=== PATIENT | female | born 1995 | race Hispanic/Latino ===

== ENCOUNTER 2020-03-16 21:14 | Inpatient (IN) | payer OTHER, SELFPAY ==
[2020-03-16] MEDS ORDERED: cloNIDine 0.1 MG TAB PO PRN (23:09)
[2020-03-16] MEDS ORDERED: Labetalol HCl 100 MG/20 ML VIAL SLOW IVP PRN (23:09)
[2020-03-16] MEDS ORDERED: hydrALAZINE 20 MG/ML VIAL SLOW IVP PRN (23:09)
[2020-03-16] MEDS ORDERED: Promethazine HCl 12.5 MG in Sodium Chloride 0.9% 50 ML IVPB PRN (23:09)
[2020-03-16] MEDS ORDERED: Ondansetron PF 4 MG/2 ML Vial IVP PRN (23:09)
[2020-03-16] MEDS ORDERED: Morphine 2 MG/ML VIAL SLOW IVP PRN (23:09)
--- NOTE | 2020-03-16 23:11 | PDOC.HHP ---
Hospitalist HPI - History of Present Illness Back pain History of Present Illness: Patient is a 24 year old female with PMH CKD who presents to ED for R sided back pain x 2 days. Pain was 10/10 this AM, R sided, accompanied by dysuria and UTI symptoms. She presented to [facility] ED, there WBC 15.6, Cr 2.09, CT A/O concerning for R ureteral/urinary tract inflammatory process. UA positive for UTI, test negative. Vitals tachycardic. Patient transferred for pyelonephritis and sepsis. Given vancomycin/ampicillin/rocephin, urine/blood cultures sent there. Here, vitals improved with IVF, patient to be admitted for pyelonephritis observation. Patient only real medical history is CKD which began after issues a few years ago. She developed a complication which sounds like preeclampsia perhaps and had an emergent C section, after recovering from this she developed CKD for which she saw a physician at [facility] last year for abnormal kidney function, she was told she only had "20%" of her kidney function then. Unsure exactly what her creatinine was at the time. Hospitalist ROS - Review of Systems Constitutional: reports: chills. denies: fever, sweats, weakness, malaise, other Eyes: denies: pain, vision change, conjunctivae inflammation, eyelid inflammation, redness, other ENT: denies: ear pain, ear discharge, nose pain, nose discharge, nose congestion, mouth pain, mouth swelling, throat pain, throat swelling, other Respiratory: denies: cough, dry, shortness of breath, hemoptysis, SOB with excertion, pleuritic pain, sputum, wheezing, other Cardiovascular: denies: chest pain, palpitations, orthopnea, paroxysmal noc. dyspnea, edema, light headedness, other Gastrointestinal: denies: nausea, vomiting, abdominal pain, diarrhea, constipation, melena, hematochezia, other Genitourinary: denies: dysuria, frequency, incontinence, hematuria, retention, other Musculoskeletal: reports: back pain. denies: neck pain, shoulder pain, arm pain, hand pain, leg pain, foot pain, other Skin: denies: rash, lesions, george, bruising, other Neurological: denies: weakness, numbness, incoordination, change in speech, confusion, seizures, other All other systems reviewed; all pertinent +/- noted in HPI/Subj - Medication Medications: reviewed Hospitalist History - Past Medical History Other Medical History: complications, CKD - Past Surgical History Past Surgical History: reports: - Family History Family History: reports: no pertinent history - Social History Alcohol: reports: None Drugs: reports: none - Exam General Appearance: NAD, awake alert Eye: PERRL, anicteric sclera ENT: normocephalic atraumatic, no oropharyngeal lesions, moist mucosa Neck: supple, symmetric, no JVD, no thyromegaly, no lymphadenopathy, no carotid bruit Heart: RRR, no murmur, no gallops, no rubs, normal peripheral pulses Respiratory: CTAB, no wheezes, no rales, no ronchi, normal chest expansion, no tachypnea, normal percussion Gastrointestinal: soft, non-tender, non-distended, normal bowel sounds, no palpable masses, no hepatomegaly, no splenomegaly, no bruit Gastrointestinal - other findings: R CVA tenderness Extremities: no cyanosis, no clubbing, no edema Skin: normal turgor, no lesions, no rashes Neurological: cranial nerve grossly intact, normal sensation to touch, no weakness, no focal deficits, no new deficit Musculoskeletal: normal tone, normal strength, no muscle wasting Psychiatric: normal affect, normal behavior, A&O x 3 Hospitalist Results - Labs Additional comment: labs, imaging report, ED documents from outside ED and here reviewed VITAL SIGNS SatMar 16, 2020 23:46 ERICK Lock, Dotty BP: 107/73 Pulse: 82 Resp: 20 Temp: 99.5 (Oral) Pain: 5 O2 sat: 99 on (Room Air) Time: 03/16/2020 23:46. Hospitalist H&P A/P - Plan Plan: Patient is a 24 year old female with PMH CKD who presents to ED for R sided back pain x 2 days. # R sided pyelonephritis # sepsis secondary to R sided pyelonephritis - admit to floor - continue IVF - rocephin - follow cultures drawn at outside ED - PRN pain medication # CKD - unknown stage, suspect CKD IV based on GFR here Patient only real medical history is CKD which began after issues a few years ago. She developed a complication which sounds like preeclampsia perhaps and had an emergent C section, after recovering from this she developed CKD for which she saw a physician at [facility] last year for abnormal kidney function, she was told she only had "20%" of her kidney function then. Unsure exactly what her creatinine was at the time. - trend BMP, continue IVF, bladder scan - recommend outpatient follow up and management DVT/GI ppx Full code
[2020-03-16] MEDS ORDERED: Electrolyte Replacement Protocol FS SCH (23:15)
[2020-03-16] MEDS: Sodium Chloride 0.9% 1,000 ML IV SCH (23:59)
[2020-03-17 00:34] VITALS: BMI 23.8
[2020-03-17 05:47] LABS: #Lymphocytes 1.5 thou/uL (1.20-3.40); #Monocytes 0.7 thou/uL (0.11-0.59); #Neutrophils 6.7 thou/uL (1.40-6.50); %Basophils 0.2 % (0.0-1.0); %Eosinophils 0.5 % (0.0-10.0); %Monocytes 7.9 % (0.0-10.0); %Neutrophils 74.4 % (42.0-75.0); Hemoglobin 10.7 g/dL (12.0-16.0); Mean Corpuscular HGB CONC 32.9 g/dL (32.0-36.0); Mean Corpuscular Volume 94.1 fL (78.0-98.0); Mean Platelet Volume 11.3 fL (7.4-10.4); Platelet Count 131 thou/uL (130-400); RBC Distribution Width 11.7 % (11.5-14.5); Red Blood Cell (RBC) Count 3.45 mill/uL (4.20-5.40)
[2020-03-17 06:10] LABS: Anion Gap 13 mmol/L (10-20); BUN (Urea Nitrogen) 21 mg/dL (7.0-18.7); Calc. Creatinine Clearance 39 mL/min (70-130); Calcium 7.8 mg/dL (7.8-10.44); Carbon Dioxide 17 mmol/L (22-29); Chloride 115 mmol/L (98-107); Estimated GFR-MDRD 33; Glucose 91 mg/dL (70-105); Magnesium 1.7 mg/dL (1.6-2.6); Potassium 4.2 mmol/L (3.5-5.1); Sodium 141 mmol/L (136-145)
[2020-03-17] MEDS: Sodium Chloride 0.9% 1,000 ML IV SCH ×2 (06:12→18:17)
[2020-03-17] MEDS: Famotidine 20 MG TAB PO SCH (07:41)
[2020-03-17] MEDS: Polyethylene Glycol 3350 17 GM Packet PO SCH (07:42)
[2020-03-17] MEDS: HYDROcodone/Acetaminophen 5/325 mg Tablet PO PRN ×2 (07:46→19:23)
[2020-03-17] MEDS ORDERED: Magnesium 2 GM/50 ML 2 GM in Premix Bag 1 BAG IVPB SCH (09:45)
--- NOTE | 2020-03-17 10:30 | PDOC.HOSPP ---
- Subjective Encounter Date: 03/17/20 Encounter Time: 08:00 Subjective: THe patient is doing well. She has been urinating every 40 minutes, no dysuria. She still has some pain in her flank No nausea or vomiting. Patient's last creatinine was 07/30/2018 and was 2.0. It was 2.2 on 07/16. She reports having protein in her urine during her last and had an emergency C - section at that time. REnal ultrasound at [facility] showed bilateral echogenic kidneys with right renal atrophy Patient states she has not had a creatinine since then because of financial issues. She has no PCP . She just moved here from [place] in [place] She denies history of hypertension as a kid, states she got all her vaccinations - Objective Vital Signs & Weight: Vital Signs (12 hours) Temp Pulse Resp BP BP Pulse Ox 03/17/20 08:01 97.4 F L 51 L 16 122/59 L 97 03/17/20 08:00 97.4 F L 51 L 16 122/59 L 97 03/17/20 07:43 97.4 F L 51 L 16 122/59 L 97 03/17/20 04:00 97.5 F L 69 16 120/66 100 03/16/20 23:59 98.5 F 61 18 108/43 L 97 Weight Weight 118 lb Result Diagrams: 03/17/20 05:28 03/17/20 05:28 Hospitalist ROS - Review of Systems Constitutional: denies: fever, chills - Medication Medications: Active Medications Generic Name Dose Route Start Last Admin Trade Name Freq PRN Reason Stop Dose Admin Hydrocodone Bitart/Acetaminophen 1 tab 03/16/20 23:09 03/17/20 07:46 Hydrocodone/Acetaminophen 5/325 Mg Tablet PO 1 tab Q4H PRN Administration Moderate Pain (4-6) Famotidine 20 mg 03/17/20 09:00 03/17/20 07:41 Famotidine 20 Mg Tab PO 20 mg QAM JENA Administration Sodium Chloride 1,000 mls @ 125 mls/hr 03/16/20 23:15 03/17/20 06:12 Normal Saline 0.9% IV 1,000 mls .Q8H JENA Administration Polyethylene Glycol 17 gm 03/17/20 09:00 03/17/20 07:42 Polyethylene Glycol 3350 17 Gm Packet PO 17 gm DAILY JENA Administration - Exam General Appearance: NAD, awake alert Eye: PERRL, anicteric sclera ENT: normocephalic atraumatic, no oropharyngeal lesions Neck: no JVD Heart: RRR, no murmur, no gallops, no rubs Respiratory: CTAB, no wheezes, no rales, no ronchi Gastrointestinal: soft, non-tender, normal bowel sounds Gastrointestinal - other findings: mild bilateral CVA tenderness Extremities: no cyanosis, no clubbing, no edema Skin: normal turgor, no lesions, no rashes Neurological: cranial nerve grossly intact, normal sensation to touch, no focal deficits, no new deficit Hosp A/P - Plan This is a 24 year old female who presented with fever, tachycardia, admitted for sepsis secondary to pyelonephritis SEpsis secondary to pyelonephritis - f/u blood and urine cultures - continue IV ceftriaxone FAITH on possible CKD - last creatinine 2.0 in 07/2018, unclear patient's baseline - creatinine has improved to 1.8 with fluids, will continue fluids for now Macrocytic anemia - Hb 10, possibly dilutional - recheck in the am
[2020-03-17 12:22] LABS: SARS-CoV-2 MS2 Positive; SARS-CoV-2 N Gene Negative; SARS-CoV-2 S Gene Negative; SARS-CoV-2 by NAA Not Detected (NotDetected); SARS-CoV-2 orf1ab Negative
--- NOTE | 2020-03-17 17:21 | ULT ---
Renal ultrasound: 03/17/2020 COMPARISON: None HISTORY: Chronic kidney disease TECHNIQUE: Multiplanar grayscale sonographic imaging of the kidneys and urinary bladder obtained FINDINGS: The right kidney is echogenic and measures 8.1 x 2.6 x 3.8 cm. Left kidney is echogenic and measures 8.5 x 3.5 x 4.7 cm. Urinary bladder appears grossly unremarkabl e. No renal mass, hydronephrosis, or renal stone noted on either side. IMPRESSION: Increased echogenicity of the kidneys may signify renal medical disease. No hydronephrosi s.
[2020-03-17] MEDS ORDERED: Sodium Bicarbonate 150 MEQ in Dextrose 5% in Water 1,000 ML IV SCH (19:00)
[2020-03-17 20:41] LABS: Creatinine, Urine 31.93 mg/dL (47-110)
[2020-03-17] MEDS: Enoxaparin Sodium 30 MG/0.3 ML SYRINGE SC SCH (20:52)
[2020-03-17] MEDS ORDERED: cefTRIAXone\\ROCEPHIN 1 GM in Sodium Chloride 0.9% 100 ML IVPB SCH (21:00)
--- NOTE | 2020-03-17 22:00 | CON ---
DATE OF CONSULTATION: CONSULTING PHYSICIAN: Joey Redmond MD REQUESTING PHYSICIAN: Dr. Scherer. REASON FOR CONSULTATION: Isxtg-fe-zulprtn kidney disease. IMPRESSION: 1. Okchr-tv-dfyrjkg kidney disease, likely cytokine mediated in the context of infection. 2. Urinary tract infection, recurrent with possible extension to the right kidney level. 3. Metabolic acidosis. 4. History of chronic kidney disease query cause with a possible preeclampsia history. PLAN: 1. Discontinue current normal saline to avoid worsening metabolic acidosis due to re-expansion acidosis. In place of this, we will start this patient on a bicarb based infusion. 2. Renal ultrasound to evaluate the structural integrity of the kidneys as well as any potential anatomical anomaly that predisposes this patient to recurrent urinary tract infection. 3. Renally dose all medications for low GFR. 4. Evaluate the anemia by checking the iron status of this patient. 5. We will treat the vitamin D level. 6. Avoid potentially nephrotoxic agents. We will evaluate the degree of proteinuria in this patient by checking the protein creatinine ratio in the urine. 7. Antibiotics treatment pending urinary culture sensitivity. HISTORY: Is that of 24-year-old female patient with a known history of chronic kidney disease, preeclampsia, necessitating emergent section at [age] months of age, who presented here with right-sided back pain of about 2 days duration and initial evaluation highly suggestive of urinary tract infection. According to the patient for the past 4 years, she has been having some degree of recurrent urinary tract infection. Initial laboratory investigation did confirm UTI and also showed elevated creatinine at 2.09 and evidence of metabolic acidosis. As a result of these findings and the previous history, decision was taken to involve Renal in the management of this case. PAST MEDICAL HISTORY: Essentially involved around preeclampsia. MEDICATIONS: No significant history of medication intake. ALLERGIES: NO KNOWN DRUG ALLERGIES. FAMILY HISTORY: Questionable history of possible kidney disease in the distant cousin. SOCIAL HISTORY: The patient is . She denies alcohol, tobacco, or illicit drug use. REVIEW OF SYSTEMS: As documented in the body of the history. All the other systems were reviewed and found not to be significantly related to present illness. PHYSICAL EXAMINATION: GENERAL: The patient was found not to be in any obvious distress. VITAL SIGNS: Noted with the following vital signs; afebrile, temperature 97.9, pulse 58, respiratory rate of 20, O2 saturation 98% with a blood pressure 102/68. HEENT: Unremarkable. CARDIOVASCULAR SYSTEM: First and second heart sounds were heard. RESPIRATORY SYSTEM: Clear to auscultation. DIGESTIVE SYSTEM: Revealed a benign abdomen. Positive bowel sounds. EXTREMITIES: No peripheral edema. SKIN: No new gross rash. UROGENITAL SYSTEM: Did reveal positive costovertebral angle tenderness on the right. SUMMARY: A 24-year-old very nice female patient who presented here with evidence of urinary tract infection and noted to have worsening wqcwg-na-brdsmak kidney disease. Thank you for this consultation. We will follow with you. Job ID: [id number]
[2020-03-18 06:17] LABS: Hemoglobin 11.6 g/dL (12.0-16.0); Mean Corpuscular HGB CONC 33.1 g/dL (32.0-36.0); Mean Corpuscular Hemoglobin 30.9 pg (27.0-31.0); Mean Corpuscular Volume 93.3 fL (78.0-98.0); Platelet Count 143 thou/uL (130-400); RBC Distribution Width 11.6 % (11.5-14.5); Red Blood Cell (RBC) Count 3.76 mill/uL (4.20-5.40); White Blood Cell (WBC) Count 5.6 thou/uL (4.8-10.8)
[2020-03-18 06:32] LABS: Iron 23 ug/dL (50-170); Iron Binding Capacity, Total 219 mcg/dL (265-497)
[2020-03-18 06:41] LABS: ALT (SGPT) 12 U/L (8-55); AST (SGOT) 19 U/L (5-34); Albumin 3.3 g/dL (3.5-5.0); Alkaline Phosphatase 68 U/L (40-110); Anion Gap 13 mmol/L (10-20); BUN (Urea Nitrogen) 16 mg/dL (7.0-18.7); Bilirubin, Total Less than 0.2 mg/dL (0.2-1.2); Calc. Creatinine Clearance 41 mL/min (70-130); Calcium 8.4 mg/dL (7.8-10.44); Carbon Dioxide 25 mmol/L (22-29); Chloride 109 mmol/L (98-107); Estimated GFR-MDRD 35; Globulin 2.6 g/dL (2.4-3.5); Glucose 99 mg/dL (70-105); Iron 22 ug/dL (50-170); Potassium 3.5 mmol/L (3.5-5.1); Protein, Total 5.9 g/dL (6.0-8.3); Sodium 143 mmol/L (136-145)
[2020-03-18 07:05] LABS: Ferritin 69.86 ng/mL (10-291); Thyroid Stimulating Hormone 0.7894 uIU/mL (0.35-4.94)
[2020-03-18] MEDS ORDERED: Potassium Chloride 20 MEQ TAB PO SCH (08:00)
[2020-03-18] MEDS: Famotidine 20 MG TAB PO SCH (08:15)
[2020-03-18] MEDS: Polyethylene Glycol 3350 17 GM Packet PO SCH (08:15)
[2020-03-18] MEDS: HYDROcodone/Acetaminophen 5/325 mg Tablet PO PRN ×2 (08:18→20:09)
[2020-03-18] MEDS: Cholecalciferol (Vitamin D3) 400 UNITS TAB PO SCH (11:03)
[2020-03-18] MEDS: Acetaminophen 325 MG TAB PO PRN (13:24)
[2020-03-18] MEDS ORDERED: Cefdinir 300 MG CAP PO SCH (14:15)
[2020-03-18] MEDS ORDERED: IRON SUCROSE COMPLEX 100 MG/5 ML SLOW IVP SCH (17:15)
[2020-03-18] MEDS ORDERED: Iron, Sodium Ferric Gluconate 250 MG in Sodium Chloride 0.9% 100 ML IVPB SCH (17:30)
--- NOTE | 2020-03-18 17:58 | PDOC.HOSPP ---
- Subjective Encounter Date: 03/18/20 Encounter Time: 10:00 Subjective: The patient states she still has some mild flank pain and back pain. She also has some diarrhea, states she received a stool softener yesterday. She has no nausea or vomiting. Creatinine improved to 1.8 today . Urine culture shows no growth - Objective Vital Signs & Weight: Vital Signs (12 hours) Temp Pulse Resp BP Pulse Ox 03/18/20 15:42 98.2 F 68 18 123/74 100 03/18/20 11:13 98.3 F 52 L 18 144/77 H 100 03/18/20 07:03 97.8 F 51 L 18 124/78 99 Weight Weight 118 lb I&O: 03/17/20 03/18/20 03/19/20 06:59 06:59 06:59 Intake Total 1740 1200 Balance 1740 1200 Result Diagrams: 03/18/20 05:38 03/18/20 05:38 Hospitalist ROS - Review of Systems Constitutional: denies: fever, chills - Medication Medications: Active Medications Generic Name Dose Route Start Last Admin Trade Name Freq PRN Reason Stop Dose Admin Acetaminophen 650 mg 03/16/20 23:09 03/18/20 13:24 Acetaminophen 325 Mg Tab PO 650 mg Q4H PRN Administration Headache/Fever/Mild Pain (1-3) Hydrocodone Bitart/Acetaminophen 1 tab 03/16/20 23:09 03/18/20 08:18 Hydrocodone/Acetaminophen 5/325 Mg Tablet PO 1 tab Q4H PRN Administration Moderate Pain (4-6) Cholecalciferol 800 units 03/18/20 09:00 03/18/20 11:03 Cholecalciferol (Vitamin D3) 400 Units Tab PO 800 units DAILY JENA Administration Enoxaparin Sodium 30 mg 03/17/20 21:00 03/17/20 20:52 Enoxaparin Sodium 30 Mg/0.3 Ml Syringe SC 30 mg 2100 JENA Administration Famotidine 20 mg 03/17/20 09:00 03/18/20 08:15 Famotidine 20 Mg Tab PO 20 mg QAM JENA Administration Pantoprazole Sodium 40 mg 03/18/20 14:15 03/18/20 17:52 Pantoprazole 40 Mg Tab PO 40 mg DAILY JENA Administration Polyethylene Glycol 17 gm 03/17/20 09:00 03/18/20 08:15 Polyethylene Glycol 3350 17 Gm Packet PO Not Given DAILY JENA - Exam General Appearance: NAD, awake alert Eye: PERRL, anicteric sclera ENT: normocephalic atraumatic, no oropharyngeal lesions Neck: no JVD Heart: RRR, no murmur, no gallops, no rubs Respiratory: CTAB, no wheezes, no rales, no ronchi Gastrointestinal: soft, non-tender, non-distended, normal bowel sounds Gastrointestinal - other findings: bilateral CVA tenderness worst on right Extremities: no cyanosis, no clubbing, no edema Skin: normal turgor, no lesions, no rashes Hosp A/P - Plan This is a 24 year old female who presented with fever, tachycardia, admitted for sepsis secondary to pyelonephritis SEpsis secondary to pyelonephritis - blood culture negative, urine culture is showing no growth, but will treat given fever, tachycardia and CVA tenderness on admission - switch IV ceftriaxone to oral cefdinir FAITH on possible CKD - improved, creatinine down to 1.8. Stopped IV fluids, encourage oral hydration - recheck BMP tomorrow - renal US shows bilateral echogenic kidneys with no hydronephrosis Macrocytic anemia - Hb 11.6 -TSH, B12/folate normal Vitamin D deficiency - started on vitamin D supplementation
--- NOTE | 2020-03-18 19:48 | PRG ---
DATE OF SERVICE: 03/18/2020 SUBJECTIVE: The patient was seen and examined, noted with the following vital signs. OBJECTIVE: VITAL SIGNS: Afebrile, temperature 98.2, pulse 68, respiratory rate of 18, O2 saturation 100% with blood pressure 123/74 to 144/72. HEENT: Unremarkable. CARDIOVASCULAR SYSTEM: First and second heart sounds were heard. RESPIRATORY SYSTEM: Clear to auscultation. DIGESTIVE SYSTEM: Revealed a benign abdomen. Positive bowel sounds. EXTREMITIES: No peripheral edema. SKIN: No new gross rash. LYMPHATIC: No peripheral lymphadenopathy. LABORATORY INVESTIGATION: Showed a creatinine down to 1.8, bicarb of 25, serum iron of 23, and iron saturation of 11, ferritin of 69, vitamin D of 22.6. Urine chemistry suggestive of some nephrotic range proteinuria of about 2 g. Renal ultrasound showed bilateral echogenic kidneys consistent with chronic kidney disease. IMPRESSION: 1. Chronic kidney disease, query cause may be related to undiagnosed glomerulonephritis. 2. Subnephrotic range proteinuria. 3. Urinary tract infection. PLAN: 1. Given the echogenic kidneys, the benefit of renal biopsy is less than the potential risk of complications. Therefore, we will continue with medical management. 2. If the hemodynamics tolerates, we will start this patient on KENIA inhibitor at a lower dose. 3. Parenteral iron as tolerated given the iron deficiency in this patient. 4. Renally dose all medications. 5. Very close outpatient Nephrology followup status post discharge strongly recommended. 6. Vitamin D supplementation. Job ID: [id number]
[2020-03-18] MEDS: Enoxaparin Sodium 30 MG/0.3 ML SYRINGE SC SCH (20:08)
[2020-03-18] MEDS: Cefdinir 300 MG CAP PO SCH (20:08)
[2020-03-18] MEDS: Lidocaine 5% Patch TD SCH (20:09)
[2020-03-18] MEDS ORDERED: Lidocaine 5% Patch TD SCH (21:00)
[2020-03-19 07:12] LABS: Hemoglobin 12.2 g/dL (12.0-16.0); Mean Corpuscular HGB CONC 33.4 g/dL (32.0-36.0); Mean Corpuscular Hemoglobin 30.9 pg (27.0-31.0); Mean Corpuscular Volume 92.4 fL (78.0-98.0); Mean Platelet Volume 10.6 fL (7.4-10.4); Platelet Count 157 thou/uL (130-400); RBC Distribution Width 11.5 % (11.5-14.5); Red Blood Cell (RBC) Count 3.95 mill/uL (4.20-5.40); White Blood Cell (WBC) Count 5.6 thou/uL (4.8-10.8)
[2020-03-19 07:34] LABS: Anion Gap 12 mmol/L (10-20); BUN (Urea Nitrogen) 12 mg/dL (7.0-18.7); Calc. Creatinine Clearance 39 mL/min (70-130); Calcium 8.5 mg/dL (7.8-10.44); Carbon Dioxide 25 mmol/L (22-29); Chloride 107 mmol/L (98-107); Estimated GFR-MDRD 32; Glucose 86 mg/dL (70-105); Potassium 3.9 mmol/L (3.5-5.1); Sodium 140 mmol/L (136-145)
[2020-03-19] MEDS: Acetaminophen 325 MG TAB PO PRN (08:19)
[2020-03-19] MEDS: Famotidine 20 MG TAB PO SCH (08:19)
[2020-03-19] MEDS: Cefdinir 300 MG CAP PO SCH (08:19)
[2020-03-19] MEDS: Cholecalciferol (Vitamin D3) 400 UNITS TAB PO SCH (08:19)
[2020-03-19] MEDS: Lidocaine Patch Removal 1 EACH TOP SCH (08:43)
[2020-03-19] MEDS: Polyethylene Glycol 3350 17 GM Packet PO SCH (08:43)
[2020-03-19] MEDS: HYDROcodone/Acetaminophen 5/325 mg Tablet PO PRN (11:32)
--- NOTE | 2020-03-19 11:32 | PDOC.HOSPP ---
- Subjective Encounter Date: 03/19/20 Encounter Time: 10:00 Subjective: c/o right flank pain no nausea or abd pain now had panic attack with severe diaphoresis yesterday, none after that is ambulating and eating - Objective Vital Signs & Weight: Vital Signs (12 hours) Temp Pulse Resp BP Pulse Ox 03/19/20 11:06 98.6 F 58 L 16 121/80 97 03/19/20 08:14 99 03/19/20 07:25 98.2 F 55 L 16 120/74 99 Weight Weight 118 lb I&O: 03/18/20 03/19/20 03/20/20 06:59 06:59 06:59 Intake Total 1740 2700 Balance 1740 2700 Result Diagrams: 03/19/20 06:37 03/19/20 06:37 Hospitalist ROS - Medication Medications: Active Medications Generic Name Dose Route Start Last Admin Trade Name Freq PRN Reason Stop Dose Admin Acetaminophen 650 mg 03/16/20 23:09 03/19/20 08:19 Acetaminophen 325 Mg Tab PO 650 mg Q4H PRN Administration Headache/Fever/Mild Pain (1-3) Hydrocodone Bitart/Acetaminophen 1 tab 03/16/20 23:09 03/18/20 20:09 Hydrocodone/Acetaminophen 5/325 Mg Tablet PO 1 tab Q4H PRN Administration Moderate Pain (4-6) Cholecalciferol 800 units 03/18/20 09:00 03/19/20 08:19 Cholecalciferol (Vitamin D3) 400 Units Tab PO 800 units DAILY JENA Administration Enoxaparin Sodium 30 mg 03/17/20 21:00 03/18/20 20:08 Enoxaparin Sodium 30 Mg/0.3 Ml Syringe SC 30 mg 2100 JENA Administration Famotidine 20 mg 03/17/20 09:00 03/19/20 08:19 Famotidine 20 Mg Tab PO 20 mg QAM JENA Administration Lidocaine 1 patch 03/18/20 21:00 03/18/20 20:09 Lidocaine 5% Patch TD 1 patch 2100 JENA Administration Miscellaneous Medication 1 each 03/19/20 09:00 03/19/20 08:43 Lidocaine Patch Removal 1 Each TOP 1 each 0900 JENA Administration Pantoprazole Sodium 40 mg 03/18/20 14:15 03/19/20 08:19 Pantoprazole 40 Mg Tab PO 40 mg DAILY JENA Administration Polyethylene Glycol 17 gm 03/17/20 09:00 03/19/20 08:43 Polyethylene Glycol 3350 17 Gm Packet PO Not Given DAILY JENA Sodium Chloride 10 ml 03/17/20 01:00 03/18/20 18:18 Flush - Normal Saline 10 Ml Syringe IVF 10 ml PRN PRN Administration Saline Flush - Exam General Appearance: awake alert Eye: PERRL, anicteric sclera ENT: no oropharyngeal lesions, moist mucosa Neck: supple, no JVD Heart: RRR, no murmur Respiratory: no wheezes, no rales Gastrointestinal: soft, non-distended, normal bowel sounds, no guarding, no rigidity Extremities: no cyanosis, no edema Neurological: cranial nerve grossly intact, no focal deficits Psychiatric: normal affect, A&O x 3 Hosp A/P (1) E coli bacteremia Code(s): R78.81 - BACTEREMIA; B96.20 - UNSP ESCHERICHIA COLI THE CAUSE OF DISEASES CLASSD [id number] Status: Acute (2) Pyelonephritis Code(s): N12 - TUBULO-INTERSTITIAL NEPHRITIS, NOT SPCF ACUTE OR CHRONIC Status: Acute (3) FAITH (acute kidney injury) Code(s): N17.9 - ACUTE KIDNEY FAILURE, UNSPECIFIED Status: Acute (4) CKD (chronic kidney disease) stage 3, GFR 30-59 ml/min Code(s): N18.3 - CHRONIC KIDNEY DISEASE, STAGE 3 (MODERATE) Status: Chronic (5) Anemia Code(s): D64.9 - ANEMIA, UNSPECIFIED Status: Chronic Qualifiers: Anemia type: iron deficiency - Plan change antibiotics to meropenem has esbl +ve e.coli bacteremia 03/16/20 her likely reaction (panic attach/diaphoresis/chest & rib pain) may be due to iv iron?? hemostable ID consult, dc plan per adv she says she has had ckd from 2 years and didn't see executive services administrator on the outside.
[2020-03-19] MEDS: MEROPENEM 1 GM/50 ML 1 GM in Premix Bag 1 BAG IVPB SCH ×2 (12:57→23:38)
[2020-03-19] MEDS: Lidocaine 5% Patch TD SCH (21:01)
[2020-03-19] MEDS: Enoxaparin Sodium 30 MG/0.3 ML SYRINGE SC SCH (21:01)
--- NOTE | 2020-03-19 22:38 | CON ---
DATE OF CONSULTATION: REASON: Pyelonephritis and renal insufficiency. HISTORY OF PRESENT ILLNESS: A 24-year-old, first admission to this hospital, who has a history of recurrent UTIs in the past and chronic renal insufficiency of uncertain etiology. She has not been able to establish medical care because of lack of insurance. Used to live in the [facility] and moved to this area with her . 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 So, she developed 4 days' history of dysuria, fever, flank pain, and she had to come to the emergency room and was admitted, and ESBL E coli was retrieved from the blood cultures and urine culture. She is currently on meropenem. No headaches. No visual symptoms, sore throat, odynophagia, dysphagia. No cough, sputum production, or chest pain. Flank pain is still there, but somewhat better. No dysuria. No frequency. No joint symptoms. No neurological symptoms. MEDICAL HISTORY: Recurrent UTIs with various treatments with antimicrobials. She has had CKD of unknown etiology. Was not worked up because of lack of medical insurance. She has had 1 . FAMILY HISTORY: There is a history of chronic renal disease in, I think, her mother or aunt. She also has a history of hepatitis E or B she is not clear during childhood. SOCIAL HISTORY: . No smoking. No alcoholic beverages. No drug use. Lives with her in town. 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 CURRENT MEDICATIONS: Include: 1. Catapres. 2. Lovenox. 3. Apresoline. 4. [place] Pointe. 5. Normodyne. 6. Morphine. 7. Zofran. 8. MiraLAX. 9. Meropenem. PHYSICAL EXAMINATION: VITAL SIGNS: T-max 98.3, blood pressure 130/60, pulse 56, respirations 16, O2 saturation 98. GENERAL: Appears in no distress. No lymphadenopathy. SKIN: Normal. HEENT: Ocular movements conjugate. Oral cavity normal. Teeth in excellent shape. NECK: Supple. No jugular venous distention. LUNGS: Symmetric. Clear breath sounds. HEART: S1, S2. Regular rate. No S3, S4. ABDOMEN: Soft. Mild tenderness in the flank area, right and left side. No bladder distention. EXTREMITIES: No joint inflammatory activity. Moves extremities equally. NEUROLOGIC: Cognitive function appears to be intact. LABORATORY DATA: White cell count 9.0 and 5.6, hemoglobin 10 and 12, platelets 131 and 157, 74% neutrophils. Chemistry with a creatinine which started at 1.87, now 1.90; sodium 143; potassium 3.5. Iron 22, TIBC 219. AST 19, ALT 12, alkaline phosphatase 68, albumin 3.3. Urinalysis with greater than 50 wbc's on March 16, moderate blood, protein greater than 300. Microbiology with E coli ESBL phenotype in 1 set of blood cultures and in the sample for urine cultures. IMAGING: Abdomen and pelvis CT with IUD present. No nephrolithiasis. Mild prominence of right renal collecting system. No calcification noted. Lung bases grossly unremarkable. ASSESSMENT: 1. Chronic renal failure of uncertain etiology with what appears to be significant proteinuria, not yet properly worked up due to lack of medical insurance. 2. Recurrent episodes of urinary tract infection. 3. Pyelonephritis associated with bacteremia due to an extended spectrum beta-lactamase producing Escherichia coli. DISCUSSION: The patient will continue on renally adjusted meropenem and eventual transition to ertapenem for outpatient treatment through the outpatient infusion area. She is right at the threshold for correction of the ertapenem, but I think she can be treated with 1 g daily, the duration of therapy approximately is 7 days after discharge. The reason for the chronic renal insufficiency needs to be further evaluated. She may need a renal biopsy if proteinuria is confirmed. She may have IgA nephropathy or some other form of chronic glomerulonephritis since she has had a chronically decreased GFR, it would be ideal to treat her avoiding a PICC line because she may need her vein access for establishment of dialysis access in the future. So, in that case, she would require either an intramuscular administration of ertapenem which I think it is feasible and she would have to come probably for 7 days for intramuscular administration. That would be preferable rather than inserting a Little catheter for such a short course of therapy. Job ID: [id number] [facility]
--- NOTE | 2020-03-19 22:53 | PRG ---
DATE OF SERVICE: SUBJECTIVE: The patient was seen and examined. Events of yesterday noted. It appears like allergic reaction to IV iron infusion. OBJECTIVE: VITAL SIGNS: Otherwise patient noted with the following vital signs; afebrile, temperature 98.4, pulse 61, respiratory rate of 18, O2 saturations of 99%, blood pressure 122/71. HEENT: Unremarkable. CARDIOVASCULAR: First and second heart sounds were heard. RESPIRATORY: Clear to auscultation. DIGESTIVE: Revealed a benign abdomen. Positive bowel sounds. EXTREMITIES: No peripheral edema. SKIN: No new gross rash. LYMPHATICS: No peripheral lymphadenopathy. IMPRESSION: 1. Chronic kidney disease, query cause. 2. Urinary tract infection, query organism. 3. Potential allergic reaction to iron dextran. 4. Subnephrotic range proteinuria in keeping with problem number 1. PLAN: 1. Please list iron dextran as part of this patient's allergy. 2. We will likely start this patient on low-dose KENIA inhibitor, though this can be carried out as an outpatient. 3. Renally dose all medications. 4. Outpatient Nephrology followup strongly recommended status post discharge. 5. Further management to be dependent on the clinical course. Job ID: [id number]
[2020-03-20] MEDS: Famotidine 20 MG TAB PO SCH (09:10)
[2020-03-20] MEDS: Cholecalciferol (Vitamin D3) 400 UNITS TAB PO SCH (09:10)
[2020-03-20] MEDS: Lidocaine Patch Removal 1 EACH TOP SCH (09:11)
[2020-03-20] MEDS: Polyethylene Glycol 3350 17 GM Packet PO SCH (09:11)
[2020-03-20] MEDS: MEROPENEM 1 GM/50 ML 1 GM in Premix Bag 1 BAG IVPB SCH ×2 (12:17→23:36)
[2020-03-20] MEDS: Acetaminophen 325 MG TAB PO PRN ×2 (14:07→23:45)
--- NOTE | 2020-03-20 15:38 | PDOC.HOSPP ---
- Subjective Encounter Date: 03/20/20 Encounter Time: 11:40 Subjective: no abd pain or nausea today feels better, slept well and is starting to eat well - Objective Vital Signs & Weight: Vital Signs (12 hours) Temp Pulse Resp BP Pulse Ox 03/20/20 11:05 98.3 F 52 L 14 134/76 99 03/20/20 08:55 97 03/20/20 07:38 97.8 F 52 L 12 111/68 97 Weight Weight 118 lb I&O: 03/19/20 03/20/20 03/21/20 06:59 06:59 06:59 Intake Total 2700 1760 Balance 2700 1760 Result Diagrams: 03/19/20 06:37 03/19/20 06:37 Hospitalist ROS - Medication Medications: Active Medications Generic Name Dose Route Start Last Admin Trade Name Freq PRN Reason Stop Dose Admin Acetaminophen 650 mg 03/16/20 23:09 03/20/20 14:07 Acetaminophen 325 Mg Tab PO 650 mg Q4H PRN Administration Headache/Fever/Mild Pain (1-3) Hydrocodone Bitart/Acetaminophen 1 tab 03/16/20 23:09 03/19/20 11:32 Hydrocodone/Acetaminophen 5/325 Mg Tablet PO 1 tab Q4H PRN Administration Moderate Pain (4-6) Cholecalciferol 800 units 03/18/20 09:00 03/20/20 09:10 Cholecalciferol (Vitamin D3) 400 Units Tab PO 800 units DAILY JENA Administration Enoxaparin Sodium 30 mg 03/17/20 21:00 03/19/20 21:01 Enoxaparin Sodium 30 Mg/0.3 Ml Syringe SC 30 mg 2100 JENA Administration Famotidine 20 mg 03/17/20 09:00 03/20/20 09:10 Famotidine 20 Mg Tab PO 20 mg QAM JENA Administration Meropenem 1 gm/ Device 50 mls @ 100 mls/hr 03/19/20 12:00 03/20/20 12:17 IVPB 50 mls 1200,2359 JENA Administration Lidocaine 1 patch 03/18/20 21:00 03/19/20 21:01 Lidocaine 5% Patch TD 1 patch 2100 JENA Administration Miscellaneous Medication 1 each 03/19/20 09:00 03/20/20 09:11 Lidocaine Patch Removal 1 Each TOP 1 each 0900 JENA Administration Pantoprazole Sodium 40 mg 03/18/20 14:15 03/20/20 09:10 Pantoprazole 40 Mg Tab PO 40 mg DAILY JENA Administration Polyethylene Glycol 17 gm 03/17/20 09:00 03/20/20 09:11 Polyethylene Glycol 3350 17 Gm Packet PO Not Given DAILY JENA Sodium Chloride 10 ml 03/17/20 01:00 03/18/20 18:18 Flush - Normal Saline 10 Ml Syringe IVF 10 ml PRN PRN Administration Saline Flush - Exam General Appearance: awake alert Eye: PERRL, anicteric sclera ENT: no oropharyngeal lesions, moist mucosa Neck: supple, no JVD Heart: RRR, no murmur Respiratory: no wheezes, no rales Gastrointestinal: soft, non-tender, non-distended, normal bowel sounds Extremities: no cyanosis, no edema Neurological: cranial nerve grossly intact, no focal deficits Psychiatric: normal affect, A&O x 3 Hosp A/P (1) E coli bacteremia Code(s): R78.81 - BACTEREMIA; B96.20 - UNSP ESCHERICHIA COLI THE CAUSE OF DISEASES CLASSD ELSWHR Status: Acute (2) Pyelonephritis Code(s): N12 - TUBULO-INTERSTITIAL NEPHRITIS, NOT SPCF ACUTE OR CHRONIC Status: Acute (3) FAITH (acute kidney injury) Code(s): N17.9 - ACUTE KIDNEY FAILURE, UNSPECIFIED Status: Acute (4) CKD (chronic kidney disease) stage 3, GFR 30-59 ml/min Code(s): N18.3 - CHRONIC KIDNEY DISEASE, STAGE 3 (MODERATE) Status: Chronic (5) Anemia Code(s): D64.9 - ANEMIA, UNSPECIFIED Status: Chronic Qualifiers: Anemia type: iron deficiency - Plan is on meropenem has esbl +ve e.coli bacteremia 03/16/20 her likely reaction (panic attach/diaphoresis/chest & rib pain) may be due to iv iron?? 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
--- NOTE | 2020-03-20 19:05 | PRG ---
DATE OF SERVICE: 03/20/2020 SUBJECTIVE: The patient is seen and examined, feeling much better, noted with the following vital signs. OBJECTIVE: VITAL SIGNS: Afebrile. Temperature 98, pulse 64, respiratory rate of 16, O2 saturations of 99%, blood pressure 105/64. HEENT: Unremarkable. CARDIOVASCULAR SYSTEM: First and second heart sounds were heard. RESPIRATORY SYSTEM: Clear to auscultation. DIGESTIVE SYSTEM: Revealed a benign abdomen. Positive bowel sounds. EXTREMITIES: No peripheral edema. SKIN: No new gross rash. LYMPHATICS: No peripheral lymphadenopathy. IMPRESSION: 1. Recurrent urinary tract infection with ESBL. 2. Chronic kidney disease stage 3. 3. Subnephrotic range proteinuria. 4. Iron deficiency anemia plus or minus anemia of chronic kidney disease. PLAN: 1. Medical workup for this chronic kidney disease by aware of autoimmune hepatitis panel. 2. Take renal function panel tomorrow as well as parathyroid hormone. 3. We will start this patient on oral iron supplementation. 4. Further management to be dependent on the clinical course. Job ID: [id number]
[2020-03-20] MEDS: Lidocaine 5% Patch TD SCH (20:11)
[2020-03-20] MEDS: Enoxaparin Sodium 30 MG/0.3 ML SYRINGE SC SCH (20:12)
[2020-03-21 06:17] LABS: Albumin 3.9 g/dL (3.5-5.0); Anion Gap 14 mmol/L (10-20); BUN (Urea Nitrogen) 15 mg/dL (7.0-18.7); BUN/Creatinine Ratio 7.14; Calc. Creatinine Clearance 35 mL/min (70-130); Calcium 9.5 mg/dL (7.8-10.44); Carbon Dioxide 28 mmol/L (22-29); Chloride 101 mmol/L (98-107); Estimated GFR-MDRD 29; Glucose 98 mg/dL (70-105); Phosphorus 4.2 mg/dL (2.3-4.7); Potassium 3.8 mmol/L (3.5-5.1); Sodium 139 mmol/L (136-145)
[2020-03-21 06:37] LABS: HBSAB Concentration Less than 8.00 mIU/mL; HBSAg Index 0.12 S/CO (0-0.99); Hep B Core Total Ab Non-Reactive (NonReactive); Hep B Core Total Index 0.06 S/CO (0-0.79); Hep B Surf AB Non-Reactive (NonReactive); Hep B Surf Ag Non-Reactive S/CO (NonReactive); Hep C IgG Ab Non-Reactive (NonReactive); Hep C Index 0.17 S/CO (0-0.79)
[2020-03-21 07:32] VITALS: BP 111/69; TEMP 98.1
[2020-03-21] MEDS: Polyethylene Glycol 3350 17 GM Packet PO SCH (07:59)
[2020-03-21] MEDS: Cholecalciferol (Vitamin D3) 400 UNITS TAB PO SCH (07:59)
[2020-03-21] MEDS: Famotidine 20 MG TAB PO SCH (07:59)
[2020-03-21] MEDS: Lidocaine Patch Removal 1 EACH TOP SCH (08:00)
[2020-03-21] MEDS ORDERED: Ferrous Sulfate 325 MG TAB PO SCH (09:00)
--- NOTE | 2020-03-21 11:33 | PDOC.HOSPP ---
- Subjective Encounter Date: 03/21/20 Encounter Time: : Subjective: no abd pain or nausea feels better - Objective Vital Signs & Weight: Vital Signs (12 hours) Temp Pulse Resp BP Pulse Ox 03/21/20 08:00 98 03/21/20 07:31 98.1 F 61 20 111/69 98 Weight Weight 118 lb I&O: 03/20/20 03/21/20 03/22/20 06:59 06:59 06:59 Intake Total 1760 2390 Balance 1760 2390 Result Diagrams: 03/19/20 06:37 03/21/20 05:13 Hospitalist ROS - Medication Medications: Active Medications Generic Name Dose Route Start Last Admin Trade Name Freq PRN Reason Stop Dose Admin Acetaminophen 650 mg 03/16/20 23:09 03/20/20 23:45 Acetaminophen 325 Mg Tab PO 650 mg Q4H PRN Administration Headache/Fever/Mild Pain (1-3) Hydrocodone Bitart/Acetaminophen 1 tab 03/16/20 23:09 03/19/20 11:32 Hydrocodone/Acetaminophen 5/325 Mg Tablet PO 1 tab Q4H PRN Administration Moderate Pain (4-6) Cholecalciferol 800 units 03/18/20 09:00 03/21/20 07:59 Cholecalciferol (Vitamin D3) 400 Units Tab PO 800 units DAILY JENA Administration Enoxaparin Sodium 30 mg 03/17/20 21:00 03/20/20 20:12 Enoxaparin Sodium 30 Mg/0.3 Ml Syringe SC 30 mg 2100 JENA Administration Famotidine 20 mg 03/17/20 09:00 03/21/20 07:59 Famotidine 20 Mg Tab PO 20 mg QAM JENA Administration Ferrous Sulfate 325 mg 03/21/20 09:00 03/21/20 07:59 Ferrous Sulfate 325 Mg Tab PO 325 mg DAILY JENA Administration Meropenem 1 gm/ Device 50 mls @ 100 mls/hr 03/19/20 12:00 03/20/20 23:36 IVPB 50 mls 1200,2359 JENA Administration Lidocaine 1 patch 03/18/20 21:00 03/20/20 20:11 Lidocaine 5% Patch TD 1 patch 2100 JENA Administration Miscellaneous Medication 1 each 03/19/20 09:00 03/21/20 08:00 Lidocaine Patch Removal 1 Each TOP 1 each 0900 JENA Administration Pantoprazole Sodium 40 mg 03/18/20 14:15 03/21/20 07:59 Pantoprazole 40 Mg Tab PO 40 mg DAILY JENA Administration Polyethylene Glycol 17 gm 03/17/20 09:00 03/21/20 07:59 Polyethylene Glycol 3350 17 Gm Packet PO Not Given DAILY JENA Sodium Chloride 10 ml 03/17/20 01:00 03/18/20 18:18 Flush - Normal Saline 10 Ml Syringe IVF 10 ml PRN PRN Administration Saline Flush - Exam General Appearance: awake alert Eye: PERRL, anicteric sclera ENT: no oropharyngeal lesions, moist mucosa Neck: supple, no JVD Heart: RRR, no murmur Respiratory: no wheezes, no rales, no ronchi Gastrointestinal: soft, non-tender, non-distended, normal bowel sounds, no guarding, no rigidity Extremities: no cyanosis, no edema Neurological: cranial nerve grossly intact, no focal deficits Psychiatric: normal affect, A&O x 3 Hosp A/P (1) E coli bacteremia Code(s): R78.81 - BACTEREMIA; B96.20 - UNSP ESCHERICHIA COLI THE CAUSE OF DISEASES CLASSD ELSWHR Status: Acute (2) Pyelonephritis Code(s): N12 - TUBULO-INTERSTITIAL NEPHRITIS, NOT SPCF ACUTE OR CHRONIC St atus: Acute (3) FAITH (acute kidney injury) Code(s): N17.9 - ACUTE KIDNEY FAILURE, UNSPECIFIED Status: Acute (4) CKD (chronic kidney disease) stage 3, GFR 30-59 ml/min Code(s): N18.3 - CHRONIC KIDNEY DISEASE, STAGE 3 (MODERATE) Status: Chronic (5) Anemia Code(s): D64.9 - ANEMIA, UNSPECIFIED Status: Chronic Qualifiers: Anemia type: iron deficiency - Plan is on meropenem has esbl +ve e.coli bacteremia 03/16/20 her likely reaction (panic attach/diaphoresis/chest & rib pain) may be due to iv iron?? 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
[2020-03-21] MEDS: Acetaminophen 325 MG TAB PO PRN (11:51)
[2020-03-21] MEDS: MEROPENEM 1 GM/50 ML 1 GM in Premix Bag 1 BAG IVPB SCH (11:51)
--- NOTE | 2020-03-21 17:57 | PRG ---
DATE OF SERVICE: 03/21/2020 SUBJECTIVE: The patient is seen and examined, seems to be doing much better, noted with the following vital signs. OBJECTIVE: VITAL SIGNS: Afebrile, temperature 98.4, pulse 55, respiratory rate of 16, O2 saturation of 98%, blood pressure 128/79 to . HEENT: Unremarkable. CARDIOVASCULAR SYSTEM: First and second heart sounds were heard. RESPIRATORY SYSTEM: Clear to auscultation. DIGESTIVE SYSTEM: Revealed a benign abdomen. Positive bowel sounds. EXTREMITIES: No peripheral edema. SKIN: No new gross rash. LYMPHATIC: No peripheral lymphadenopathy. IMPRESSION: 1. Chronic kidney disease, stage 3. 2. Subnephrotic range proteinuria. 3. . PLAN: 1. We will continue current renal supportive measures. 2. Renally dose all medications. 3. Outpatient Nephrology followup, status post discharge strongly recommended. Job ID: [id number]
--- NOTE | 2020-03-22 07:29 | DIS ---
DATE OF ADMISSION: 03/16/2020 DATE OF DISCHARGE: 03/21/2020 DISCHARGE DISPOSITION: To home. PRIMARY DISCHARGE DIAGNOSES: Escherichia coli bacteremia secondary to right-sided pyelonephritis and urinary tract infection, sepsis. SECONDARY DISCHARGE DIAGNOSES: Acute kidney injury, chronic kidney disease stage 3, chronic anemia. PROCEDURES DONE DURING HOSPITALIZATION: Blood cultures 1 of 2 grew E coli with ESBL positive organism. Urine culture grew E coli, which was multi-drug resistant. White count of 15 on the day of admission with discharge numbers of 5.6. BUN 15, creatinine 2.1 on the day of discharge. Serum iron 23, TIBC 219, ferritin 69, 25-hydroxy vitamin D levels 22.6, intact PTH 167, vitamin B12 of 334, folic acid 9.4. Liver enzymes are within normal limits. Urine total random protein levels were 60 mg/dL. Urine test negative. Urine creatinine levels were 31.93 mg/dL. COVID-19 PCR was not detected on 03/16/2020. Hepatitis B surface antigen nonreactive. Hepatitis C antibody nonreactive. DISCHARGE MEDICATIONS: 1. Invanz 1 g intramuscular for another 5 more days. 2. Ferrous sulfate 325 mg p.o. daily. 3. Protonix 40 mg p.o. daily. 4. Vitamin D3 800 units p.o. daily. ALLERGIES: TO IRON DEXTRAN, NSAIDS. DISCHARGE PLAN: The patient to follow up with Dr. Cook in 10 days. She needs to find a primary care physician in the local area and follow up within one week. BRIEF COURSE DURING HOSPITALIZATION: The patient initially got admitted on the with complaints of right-sided back pain. This was there for 2 days. The patient also had complaints of urinary frequency and urgency. She had known history of chronic kidney disease for the last 2 years or so now. She had not seen a press operator printing for the same. The patient's initial workup was consistent with right-sided pyelonephritis, UTI, and sepsis. She has had E coli bacteremia with one of two cultures growing ESBL positive organism. The patient was placed on meropenem. She has been switched over to Invanz for another 5 more days. PICC line was not placed due to her history of chronic kidney disease stage 3, needing to preserve her veins and she will have intramuscular Invanz once daily 1 g for the next 5 days. Case Management consultation was requested and this has been approved by the hospital administration. She is otherwise hemodynamically stable and will be shortly discharged home. Prior to discharge, her abdominal and back pain have completely resolved. She is tolerating oral solid diet. Please see a [id number] documentation for the day of discharge on [employer]. Job ID: [id number]
[2020-03-22 14:11] LABS: Antinuclear AB Negative (Negative); Complement-C3 (Sendout) 122 mg/dL (82-167); Complement-C4 (Sendout) 41 mg/dL (14-44); DSDNA Autoabs (FARR) Sendout 1 IU/mL (0-9); Smooth Muscle Total Antibodies <0.2 AI (0.0-0.9); Thyroid Peroxidase Ab-Sendout Less than 9 IU/mL (0-34); U1 RNP/snRNP IgG Autoabs <0.2 AI (0.0-0.9)
--- NOTE | 2020-03-23 00:39 | PQF ---
CLINICAL DOCUMENTATION CLARIFICATION FORM: Dear : Soto Arcos Date / Time: 03/23/2020 0038 Please exercise your independent, professional judgment in responding to the clarification form. Clinical indicators are provided on the bottom of this form for your review Please check appropriate box(es): [ ] Acute Renal Failure (ARF) / Acute Kidney Injury (FAITH) due to Sepsis [ ] Acute Tubular Necrosis (ATN) due to Sepsis [ ] Acute Tubular Necrosis (ATN) not related to Sepsis [ x ] Acute on Chronic Renal Failure stage 3 [ ] Other diagnosis [ ] Unable to determine Physician Signature: Date/Time: For continuity of documentation, please document condition throughout progress notes and discharge summary. Thank You. To be completed by CDI/Coding staff for physician review: Present Clinical Indicators - Signs / Symptoms / Labs Results and Location in Medical Record [X] Creatinine 1.87, BUN 21, GFR 33 Laboratory 03/17 [X] Creatinine 1.80, BUN 16, GFR 35 Laboratory 03/18 [X] WBC 9.0, Platelet count 131, Neutrophils 74.4 Laboratory 03/17 [X] Temp 97.4, Pulse 51, Resp 16, BP 122/59 Vital signs 03/17 [X] She presented with R sided back pain x days H&P Dr Terry [X] Sepsis 2/2 to R sided pyelonephritis H&P p3 03/16 Dr Terry [X] Acute on Chronic kidney disease, likely cytokine mediated in the context of infection Consult Dr Redmond 03/17 [X] Increased echogenicity of the kidneys may signify renal medical disease. Renal ultrasound 03/17 Present Risk Factors Results and Location in Medical Record [X] CKD H&P p19 Dr Terry [X] Sepsis H&P p3 03/16 Dr Terry [X] Pyelonephritis H&P p3 03/16 Dr Terry [X] Metabolic Acidosis Consult Dr Redmond 03/17 Present Treatments Results and Location in Medical Record [X] IVF NS 1L SEP 06 [X] IV Sodium Bicarbonate 150 meq SEP 06 [X] IV Ceftriaxone 1 gm SEP 06 [X] Omnicef 300 mg oral SEP 06 [X] Nephroplogy consult Consult Dr Redmond 03/17 [X] Renal ultrasound Collected 03/17 CDS/Emergency Communications Officer Signature: Kay Malave Phone #: ext [phone] Date/Time: 03/23/2020 0038 This is a permanent part of the Medical Record [facility]
== END 2020-03-21 17:22 | disposition home or self-care (01) | DRG 682 ==
LOC: ERS 21:14 → T4-B 23:54 → OBSVTOIN 23:54
PROVIDERS: ADMIT Internal Medicine; ATTEND Internal Medicine
DX: N17.9 Acute kidney failure, unspecified (principal); A41.51 Sepsis due to Escherichia coli [E. coli]; Z16.24 Resistance to multiple antibiotics; E87.2 Acidosis; Z20.828 Contact with and (suspected) exposure to other viral communicable diseases; N12 Tubulo-interstitial nephritis, not specified as acute or chronic; N18.3 Chronic kidney disease, stage 3 (moderate); D63.1 Anemia in chronic kidney disease; E55.9 Vitamin D deficiency, unspecified; F41.0 Panic disorder [episodic paroxysmal anxiety]; Z88.8 Allergy status to other drugs, medicaments and biological substances; Z79.899 Other long term (current) drug therapy
CPT/HCPCS: 36415; 51798; 76770; 80048; 80053; 80069; 82306; 82570; 82607; 82728; 82746; 83540; 83550; 83735; 83970; 84156; 84443; 85025; 85027; 86160; 86225; 86235; 86376; 86704; 86706; 86803; 87086; 87340; 87635; 96361; 96372; 96374; 96375; 99285; G0378; J0696; J1650; J2185; J2916; J3475; J3490; J7070; U0003